=== PATIENT | female | born 2005 | race Caucasian/White ===

== ENCOUNTER → 2023-12-11 | Outpatient (CLI) | payer BC, SELFPAY ==
--- NOTE | 2023-12-11 14:25 | RAD_ITS ---
STUDY: X-RAY - PELVIS AND RIGHT HIP REASON FOR EXAM: Female, 18 years old. Sprain. TECHNIQUE: 3 views of the pelvis and right hip. COMPARISON: None. FINDINGS: There is a non-specific bowel gas pattern. Normal visualized soft tissue structures. Normal bilateral iliac wings, sacroiliac joints and visualized sacrum. Normal bilateral superior and inferior pubic rami. Normal pubic symphysis. Normal bilateral ischial tuberosities. Normal visualized femoral head. Normal acetabulum. Normal hip joint. RAD/HIP, UNI W/ Pelvis 2-3 Views IMPRESSION: Normal x-ray examination of the pelvis and right hip. Electronically Signed: Caden Hollis MD at 16:09 EDT ,
== END | disposition home or self-care (01) ==
LOC: RAD 14:21
PROVIDERS: Referring Provider Chiropractor; Visit Provider Chiropractor
DX: S73.191A Other sprain of right hip, initial encounter (principal)
CPT/HCPCS: 73502

== ENCOUNTER 2024-01-08 17:21 | Emergency (ER) | payer BC, SELFPAY ==
[2024-01-08 17:22] VITALS: BP 120/79; PULSE 95; RESP 18; TEMP 36.4; O2SAT 100; BMI 21.7
--- NOTE | 2024-01-08 18:03 | EDS_ITS ---
HPI HPI - URI History of Present Illness Chief Complaint: Cold Sx Narrative Narrative: 18-year-old female who denies significant past medical history presents with her best friend for upper respiratory infection type symptoms that she has had since Sunday/Sunday. This has been 3 to 4 days ago. She states that she has had headaches, sore throat, occasional cough, and hoarse voice for the last few days. She was worse yesterday and seems to be improving. She has taken Advil without relief of her symptoms. She is concerned that she may have strep throat because she has pain that is worse with swallowing. ROS ROS ED ROS Narrative Focused review of systems positive for sore throat worse with swallowing, no fevers, occasional nonproductive cough. Positive headaches. Positive hoarse voice. No nausea or vomiting, no other symptoms. PFSH PFSH Medical History no medical history Allergy/AdvReac Type Severity Reaction Status Date / Time No Known Allergies Allergy Verified 01/08/24 17:22 Social History Smoking Status: Never smoker EXAM Physical Exam Narrative Exam Narrative: Afebrile. Vital signs noted. Nontoxic-appearing. Cardiovascular examination reveals a regular rate and rhythm. Lungs are clear to auscultation bilaterally. Abdomen soft and nontender with normal active bowel sounds. HEENT examination does reveal hoarse voice on examination when the patient speaks. Neck is soft and supple without meningismus. Positive cervical lymphadenopathy anteriorly. Airway is patent. No drooling or trismus. Mild pharyngeal erythema but no exudate. Const Vital Signs: 01/08/24 17:22 01/08/24 17:47 01/08/24 17:47 Temperature 97.6 F L Temperature Source Oral Pulse Rate 95 Respiratory Rate 18 Respiratory Effort Normal Non-Labored Normal Non-Labored Respiratory Depth Normal Respiratory Pattern Normal Normal Blood Pressure 120/79 Blood Pressure Mean 92 Pulse Ox 100 Oxygen Delivery Method Room Air MDM MDM MDM Narrative Medical decision making narrative: Differential diagnosis includes but not limited to URI/viral syndrome versus laryngitis versus COVID versus influenza versus strep pharyngitis. I did offer to swab the patient for COVID and influenza and RSV but she declined. Her pulse ox is 100% on room air, so do not feel chest x-ray is indicated because I doubt pneumonia. Her main concern is that she has had a sore throat worse with swallowing. She is not meeting [facility] criteria, so rapid strep was obtained to rule out strep pharyngitis in the need for antibiotics. She was given a dose of Decadron 8 mg orally here in the emergency department. I reviewed her strep swab and it is negative. At this point in time, treatment be symptomatic with [id number] medications and plenty of oral fluids. I do not feel she requires antibiotics or observation/admission. Return instructions to the emergency department were reviewed. Disposition is discharged home in stable condition. History & Record Review Discussion w/independent historian: Patient Lab Data Attestation: I reviewed the patient's lab results. Discharge Plan Triage Chief Complaint: Cold Sx ED Provider: Rudolph Beatty Dx/Rx/DC Orders Clinical Impression: URI (upper respiratory infection), Viral syndrome, Laryngitis Instructions: ED Laryngitis, ED Pharyngitis, Viral, ED Viral Syndrome (Adult) Stand Alone Forms: ED Work / School Excuse Primary Care Provider: CARMEN EUGENE Referrals: CARMEN EUGENE [Other] - 1 Week if not improving Activity Restrictions/Additional Instructions: [id number] medications like Tylenol or ibuprofen as directed for pain and fever. Drink plenty of oral fluids. Return with new or worsening symptoms. Print Language: [place] Disposition Disposition: Home, Self Care Discharge Date/Time: 01/08/24 19:39
[2024-01-08] MEDS: dexAMETHasone 4 MG Tablet 8 MG PO (18:26)
== END 2024-01-08 19:39 | disposition home or self-care (01) ==
PROVIDERS: Emergency Provider Emergency Medicine; Visit Provider Emergency Medicine
DX: J06.9 Acute upper respiratory infection, unspecified (principal); B34.9 Viral infection, unspecified
CPT/HCPCS: 87651; 99284